=== PATIENT | female | born 1965 | race Caucasian/White ===

== ENCOUNTER 2017-12-17 14:29 | Emergency (ER) | payer OTHER ==
[~2017-12-17] VITALS: Ht 160 cm; Wt 90.0 kg
[~2017-12-17 14:29] MED LIST: MECL-111 PO; NAPR250T4 PO
[2017-12-17] MEDS ORDERED: ASPI1TAB14 PO (14:34)
[2017-12-17] MEDS ORDERED: ALLO100T PO (14:34)
[2017-12-17] MEDS ORDERED: HYDROCODONE/ACETAMINOPHEN 5-325 MG TABLET PO ONE (15:15)
[2017-12-17 16:56] LABS: APPEARANCE,URINE CLEAR (CLEAR); BILIRUBIN,URINE NEGATIVE (NEGATIVE); GLUCOSE, URINE (UA) NEGATIVE (NEGATIVE); KETONES,URINE NEGATIVE (NEGATIVE); LEUKOCYTE ESTERASE ,URINE NEGATIVE (NEGATIVE); NITRATE,URINE NEGATIVE (NEGATIVE); OCCULT BLOOD,URINE TRACE (NEGATIVE); PH,URINE 6.5 (5.0-8.0); PROTEIN,URINE NEGATIVE (NEGATIVE); UROBILINOGEN,URINE 0.2 mg/dL (<=1.0)
[2017-12-17 17:17] LABS: BACTERIA,URINE None Seen /HPF (None Seen); RBC,URINE 0-2 /HPF (0-2); SQUAMOUS EPITHELIAL CELL,UR Few /LPF (None Seen); WBC,URINE None Seen /HPF (0-5)
[2017-12-17 17:42] VITALS: BP 133/88
== END 2017-12-17 17:50 | disposition home or self-care (01) ==
LOC: EDUNIT# 14:29 → EMS 14:32
DX: S13.4XXA Sprain of ligaments of cervical spine, initial encounter (principal); R07.81 Pleurodynia; M25.552 Pain in left hip; I10 Essential (primary) hypertension; G43.909 Migraine, unspecified, not intractable, without status migrainosus; V03.99XA Pedestrian with other conveyance injured in collision with car, pick-up truck or van, unspecified whether traffic or nontraffic accident, initial encounter; Y93.01 Activity, walking, marching and hiking; Y92.89 Other specified places as the place of occurrence of the external cause; Y99.8 Other external cause status
CPT/HCPCS: 71046; 72040; 73503; 99285

== ENCOUNTER 2022-03-03 15:33 | Emergency (ER) | payer OTHER ==
[~2022-03-03] VITALS: Ht 160 cm; Wt 100.0 kg
[~2022-03-03 15:33] MED LIST changes: +ALLO-97 PO; +ASPI1TAB14 PO; -MECL-111 PO; +MECL-160 PO; +NAPR-1197 PO; -NAPR250T4 PO
[2022-03-03] MEDS ORDERED: HYDROCODONE/ACETAMINOPHEN 5-325 MG TABLET PO ONE (16:15)
[2022-03-03] MEDS ORDERED: BACL10TA PO (19:17)
[2022-03-03 19:36] VITALS: BP 144/77
== END 2022-03-03 19:44 | disposition home or self-care (01) ==
LOC: EMS 15:33
DX: M25.551 Pain in right hip (principal); M25.572 Pain in left ankle and joints of left foot; I10 Essential (primary) hypertension; G43.909 Migraine, unspecified, not intractable, without status migrainosus
CPT/HCPCS: 73502; 99284

== ENCOUNTER 2022-12-16 11:47 | Emergency (ER) | payer OTHER ==
[~2022-12-16] VITALS: Ht 160 cm; Wt 95.5 kg
[~2022-12-16 11:47] MED LIST changes: +BACL10TA PO
[2022-12-16] MEDS ORDERED: ACET-3385 PO (12:02)
[2022-12-16] MEDS ORDERED: SODIUM CHLORIDE 0.9% 100 ML ONE (13:02)
[2022-12-16] MEDS ORDERED: IOHEXOL 350 MG/ML 100 ML VIAL ONE (13:02)
[2022-12-16 13:24] LABS: BASOPHILS % (AUTO) 0.5 % (0.0-2.0); EOSINOPHILS % (AUTO) 1.8 % (1.0-6.0); HEMATOCRIT 40.5 % (36-46); HEMOGLOBIN 13.7 g/dL (12.0-16.0); LYMPHOCYTES # (AUTO) 1.9 K/uL (1.0-4.8); LYMPHOCYTES % (AUTO) 20.8 % (22.0-44.0); MEAN CORPUSCULAR HEMOGLOBIN 29.3 pg (26.0-34.0); MEAN CORPUSCULAR HGB CONC 33.8 G/dL (31.0-37.0); MEAN CORPUSCULAR VOLUME 87 fL (80-100); MONOCYTES # (AUTO) 0.6 K/uL (0.1-1.0); MONOCYTES % (AUTO) 6.8 % (2.0-9.0); NEUTROPHILS # (AUTO) 6.3 K/uL (1.8-7.7); NEUTROPHILS % (AUTO) 70.1 % (40.0-70.0); PLATELET COUNT (AUTO) 340 K/uL (150-450); RED BLOOD CELL COUNT(AUTO) 4.67 MIL/uL (4.00-5.20); RED CELL DISTRIBUTION WIDTH 13.5 % (11.5-14.5)
[2022-12-16 13:30] LABS: ANION GAP 11 mmol/L (8-16); CALCIUM, TOTAL 9.4 mg/dL (8.8-10.5); CARBON DIOXIDE 29 mmol/L (22-29); CHLORIDE 101 mmol/L (98-107); CREATININE 0.73 mg/dL (0.60-1.30); GLUCOSE,RANDOM 125 mg/dL (70-110); POTASSIUM 3.5 mmol/L (3.5-5.1); SODIUM SERUM 141 mmol/L (136-145); UREA NITROGEN, BLOOD 14 mg/dL (7-18)
[2022-12-16 13:30] LABS: APPEARANCE,URINE CLEAR (CLEAR); BILIRUBIN,URINE NEGATIVE (NEGATIVE); GLUCOSE, URINE (UA) NEGATIVE (NEGATIVE); KETONES,URINE NEGATIVE (NEGATIVE); LEUKOCYTE ESTERASE ,URINE NEGATIVE (NEGATIVE); NITRATE,URINE NEGATIVE (NEGATIVE); OCCULT BLOOD,URINE NEGATIVE (NEGATIVE); PH,URINE 6.5 (5.0-8.0); PROTEIN,URINE NEGATIVE (NEGATIVE); SPECIFIC GRAVITIY, URINE 1.017 (1.003-1.030); UROBILINOGEN,URINE <=1.0 mg/dL (<=1.0)
[2022-12-16 13:31] LABS: PROTHROMBIN TIME 10.3 SEC (9.4-11.6)
[2022-12-16 13:33] LABS: GLOMERULAR FILTR. RATE CALC > 60 mL/min (>60)
[2022-12-16 13:36] LABS: ALANINE AMINOTRANSFERASE 21 U/L (12-78); ALBUMIN 4.1 g/dL (3.4-5.0); ALKALINE PHOSPHATASE 81 U/L (46-116); ASPARTATE AMINOTRANSFERASE 20 U/L (15-37); BILIRUBIN,TOTAL 0.4 mg/dL (0.1-1.0); LIPASE 115 U/L (73-393); TOTAL PROTEIN, SERUM 8.7 g/dL (6.4-8.2)
[2022-12-16] MEDS ORDERED: HYDROCODONE/ACETAMINOPHEN 5-325 MG TABLET PO ONE (16:45)
[2022-12-16] MEDS ORDERED: SODIUM CHLORIDE 0.9% 1,000 ML IV ONE (16:45)
[2022-12-16 17:35] VITALS: BP 141/76
== END 2022-12-16 18:23 | disposition home or self-care (01) ==
LOC: EMS 11:55
DX: K64.4 Residual hemorrhoidal skin tags (principal); I10 Essential (primary) hypertension; D64.9 Anemia, unspecified; Z79.899 Other long term (current) drug therapy
CPT/HCPCS: 99285; 74177; 96360; 71045; 96361; 80053; 81003; 83690; 85025; 85610; 85730; 86850; 86900; 86901; 36415; 93005; Q9967; J7030; J7050

== ENCOUNTER 2024-04-05 15:41 | Emergency (ER) | payer MEDICAID, OTHER ==
[~2024-04-05] VITALS: Ht 160 cm; Wt 75.9 kg
[~2024-04-05 15:41] MED LIST changes: +ACET-3385 PO; -ALLO-97 PO; -ASPI1TAB14 PO; -BACL10TA PO; -MECL-160 PO; -NAPR-1197 PO
[2024-04-05 15:54] VITALS: TEMP 98.2
[2024-04-05] MEDS: KETOROLAC TROMETHAMINE 30 MG/ML VIAL IVP ONE (17:09)
[2024-04-05] MEDS: HYDROmorphone HCL 2 MG/ML SYRINGE IVP ONE (17:10)
[2024-04-05] MEDS: ONDANSETRON HCL 4 MG/2 ML VIAL IVP ONE (17:10)
[2024-04-05] MEDS: ETOMIDATE 2 MG/ML 10 ML VIAL IVP ONE (17:55)
[2024-04-05] MEDS ORDERED: ACET-2080 PO (19:21)
[2024-04-05] MEDS ORDERED: IBUP-1554 PO (19:21)
[2024-04-05 19:34] VITALS: BP 141/80; PULSE 57; RESP 18
[2024-04-05] MEDS ORDERED: OXYGEN THERAPY IH SCH (20:00)
== END 2024-04-05 19:47 | disposition home or self-care (01) ==
LOC: EMS 15:41
DX: S43.005A Unspecified dislocation of left shoulder joint, initial encounter (principal); S60.211A Contusion of right wrist, initial encounter; I10 Essential (primary) hypertension; G43.909 Migraine, unspecified, not intractable, without status migrainosus; D64.9 Anemia, unspecified; W01.0XXA Fall on same level from slipping, tripping and stumbling without subsequent striking against object, initial encounter; Y93.89 Activity, other specified; Y92.89 Other specified places as the place of occurrence of the external cause; Y99.8 Other external cause status
CPT/HCPCS: 99284; 23650; 96374; 96375; 94760; 73030; 73110; J3490; J1170; J1885; J2405; 99152

== ENCOUNTER 2025-09-20 03:19 | Emergency (ER) | payer SELFPAY ==
[~2025-09-20] VITALS: Ht 160 cm; Wt 84.1 kg
[~2025-09-20 03:19] MED LIST changes: +ACET-2080 PO; -ACET-3385 PO; +IBUP-1554 PO
[2025-09-20 03:27] VITALS: BP 207/84; PULSE 64; RESP 18; TEMP 98.2; O2SAT 100
[2025-09-20] MEDS ORDERED: HYDR-4062 PO (06:31)
== END 2025-09-20 06:40 | disposition home or self-care (01) ==
LOC: EMS 03:20
DX: M25.511 Pain in right shoulder (principal); M25.441 Effusion, right hand; I10 Essential (primary) hypertension; G43.909 Migraine, unspecified, not intractable, without status migrainosus; Z98.890 Other specified postprocedural states; Z79.899 Other long term (current) drug therapy; W19.XXXA Unspecified fall, initial encounter; Y93.89 Activity, other specified; Y92.89 Other specified places as the place of occurrence of the external cause; Y99.0 Civilian activity done for income or pay
CPT/HCPCS: 99283; 73030; 96372; J1171